=== PATIENT | female | born 2000 | race African-American/Black ===

== ENCOUNTER 2021-02-01 22:52 | Emergency (ER) | payer MEDICAID ==
--- NOTE | 2021-02-01 23:32 | EDM.PDOC ---
ED HPI GENERAL MEDICAL PROBLEM - General Chief Complaint: Lower Extremity Injury/Pain Stated Complaint: JAMMED TOE Time Seen by Provider: 02/01/21 23:00 Source of Information: Reports: Patient History Limitations: Reports: No Limitations - History of Present Illness INITIAL COMMENTS - FREE TEXT/NARRATIVE: was wrestling with boyfriend, got right toe jammed and since then has been hurting , getting more swollen,pt finding it painful to ambulate Onset: Today Onset Date: 02/02/21 Onset Time: 18:00 Duration: Getting Worse Location: Reports: Lower Extremity, Right Quality: Reports: Ache, Dull, Throbbing Severity: Moderate Improves with: Reports: None Worsens with: Reports: None Associated Symptoms: Reports: No Other Symptoms - Related Data Allergies Allergy/AdvReac Type Severity Reaction Status Date / Time No Known Allergies Allergy Verified 02/01/21 23:06 Home Meds: Home Meds . Control 1 dose .ROUTE ASDIRECTED 02/01/21 [History] Naproxen 500 mg PO BID #30 tablet 02/02/21 [Rx] Review of Systems - Review of Systems Review Of Systems: See Below Constitutional: Reports: No Symptoms Eyes: Reports: No Symptoms Ears: Reports: No Symptoms Nose: Reports: No Symptoms Mouth/Throat: Reports: No Symptoms Respiratory: Reports: No Symptoms Cardiovascular: Reports: No Symptoms GI/Abdominal: Reports: No Symptoms Musculoskeletal: Reports: Foot Pain (2nd right toe pain with swelling , no deformity) Skin: Reports: No Symptoms Neurological: Reports: No Symptoms Psychiatric: Reports: No Symptoms ED EXAM, GENERAL - Physical Exam Exam: See Below Exam Limited By: No Limitations General Appearance: Alert, WD/WN, No Apparent Distress Eye Exam: Bilateral Eye: EOMI Ears: Normal External Exam Ear Exam: Bilateral Ear: Auricle Normal Nose: Normal Inspection Head: Atraumatic, Normocephalic Neck: Supple, Non-Tender Respiratory/Chest: Normal Breath Sounds Peripheral Pulses: 2+: Dorsalis Pedis (L), Dorsalis Pedis (R) GI/Abdominal: Soft, Non-Tender Extremities: Limited Range of Motion (right 2nd toe due to pain, swelling , no deformity) Neurological: Alert, CN II-XII Intact Psychiatric: Normal Affect Skin Exam: Warm Course - Vital Signs Last Recorded V/S: Last Vital Signs Temp 37.1 C 02/01/21 23:00 Pulse 83 03/12/21 23:00 Resp 18 02/01/21 23:00 BP 123/49 L 02/01/21 23:00 Pulse Ox 100 02/01/21 23:00 - Re-Assessments/Exams Free Text/Narrative Re-Assessment/Exam: 02/02/21 00:04 xray obtained , discussed same with pt Departure - Departure Time of Disposition: 12:05 Disposition: Home, Self-Care 01 Condition: Fair Clinical Impression: Contusion of toe of right foot, Contusion of lesser toe of right foot without damage to nail - Discharge Information *PRESCRIPTION DRUG MONITORING PROGRAM REVIEWED*: Not Applicable *COPY OF PRESCRIPTION DRUG MONITORING REPORT IN PATIENT EMILY: Not Applicable Prescriptions: Naproxen 500 mg PO BID #30 tablet Instructions: Foot Contusion, [id number] Referrals: PCP,None [Primary Care Provider] - Forms: ED Department Discharge Additional Instructions: 1) Cold compress to the affected toe 2) Wear flat shoes and open toed till pain has stopped 3) if pain persists after 10 days , you will need to have a repeat Xray
--- NOTE | 2021-02-04 12:10 | CR ---
RIGHT SECOND TOE 5105 INDICATION: Toe injury. Three views of the right second toe revealed no evidence of an acute fracture, dislocation, or other significant appearing bone or joint abnormality. If symptoms persist, if occult fracture site is suspected clinically, re- examination in 10-14 days may be helpful. [facility]
== END 2021-02-02 00:15 | disposition home or self-care (01) ==
LOC: FB.ED 22:52
DX: S90.121A Contusion of right lesser toe(s) without damage to nail, initial encounter (principal); W23.0XXA Caught, crushed, jammed, or pinched between moving objects, initial encounter; Y93.72 Activity, wrestling
CPT/HCPCS: 73660-T6; 99283